=== PATIENT | male | born 1990 | race Caucasian/White ===

== ENCOUNTER 2021-03-31 14:36 | Emergency (ER) | payer MEDICAID ==
[~2021-03-31] VITALS: Ht 182.9 cm; Wt 100.0 kg
[2021-03-31] MEDS ORDERED: ACETAMINOPHEN 500 MG TABLET PO ONE (17:30)
[2021-03-31 18:00] VITALS: BP 111/67
== END 2021-03-31 18:31 | disposition home or self-care (01) ==
LOC: EMS 14:43
DX: S09.90XA Unspecified injury of head, initial encounter (principal); F07.81 Postconcussional syndrome; W22.8XXA Striking against or struck by other objects, initial encounter; Y93.89 Activity, other specified; Y92.89 Other specified places as the place of occurrence of the external cause; Y99.8 Other external cause status
CPT/HCPCS: 70450; 99284